=== PATIENT | male | born 1970 | race Caucasian/White ===

== ENCOUNTER 2022-01-29 09:55 | Outpatient (CLI) | payer OTHER, SELFPAY ==
--- NOTE | 2022-01-29 11:00 | NEURO_ITS ---
Impression: # Complains of left upper extremity pain. # Left ulnar neuropathy across the elbow. # No Carpal Tunnel Syndrome. # Abnormal needle/EMG exam of left 1st DI and ADM. Nerve Conduction Studies Anti Sensory Summary Table Stim Site NR Peak (ms) P-T Amp (?V) Site1 Site2 Delta-P (ms) Dist (cm) Jermain (m/s) Left Median Anti Sensory (2-3nd Digit) Wrist 3.3 45.6 Wrist 2-3nd Digit 3.3 14.0 42 Wrist 3.2 45.0 Wrist 2-3nd Digit 3.3 14.0 42 Right Median Anti Sensory (2-3nd Digit) Wrist 3.3 50.9 Wrist 2-3nd Digit 3.3 14.0 42 Wrist 3.3 24.9 Wrist 2-3nd Digit 3.3 14.0 42 Left Radial Anti Sensory (Base 1st Digit) Wrist 2.0 15.5 Wrist Base 1st Digit 2.0 0.0 Right Radial Anti Sensory (Base 1st Digit) Wrist 2.3 14.3 Wrist Base 1st Digit 2.3 0.0 Left Ulnar Anti Sensory (5th Digit) Right Ulnar Anti Sensory (5th Digit) Wrist 2.8 38.0 Wrist 5th Digit 2.8 14.0 50 Motor Summary Table Stim Site NR Onset (ms) O-P Amp (mV) Site1 Site2 Delta-0 (ms) Dist (cm) Jermain (m/s) Left Median Motor (Abd Poll Brev) Wrist 3.4 3.1 Elbow Wrist 5.3 31.0 58 Elbow 8.7 3.4 Right Median Motor (Abd Poll Brev) Wrist 3.4 2.4 Elbow Wrist 5.7 30.0 53 Elbow 9.1 1.9 Left Ulnar Motor (Abd Dig Minimi) Wrist 2.7 4.1 A Elbow Wrist 6.5 30.0 46 A Elbow 9.2 2.6 B Elbow Wrist 4.8 25.0 52 B Elbow 7.5 3.5 Right Ulnar Motor (Abd Dig Minimi) Wrist 2.3 4.6 A Elbow Wrist 6.0 33.0 55 A Elbow 8.3 2.9 F Wave Studies NR F-Lat (ms) L-R F-Lat (ms) Left Median (Mrkrs) (Abd Poll Brev) 29.63 0.25 Right Median (Mrkrs) (Abd Poll Brev) 29.38 0.25 Left Ulnar (Mrkrs) (Abd Dig Min) 30.33 0.41 Right Ulnar (Mrkrs) (Abd Dig Min) 29.92 0.41 EMG Side Muscle Nerve Root Ins Act Fibs Amp Dur Recrt Comment Right 1stDorInt Ulnar C8-T1 Nml Nml Nml >12ms Reduced Right Ext Indicis Radial (Post Int) C7-8 Nml Nml Nml Nml Nml Right Ext Digitorum Radial (Post Int) C7-8 Nml Nml Nml Nml Nml Right BrachioRad Radial C5-6 Nml Nml Nml Nml Nml Right PronatorTeres Median C6-7 Nml Nml Nml Nml Nml Right Abd Poll Brev Median C8-T1 Nml Nml Nml Nml Nml Left 1stDorInt Ulnar C8-T1 Nml Nml Nml >12ms Reduced Left Ext Indicis Radial (Post Int) C7-8 Nml Nml Nml Nml Nml Left Ext Digitorum Radial (Post Int) C7-8 Nml Nml Nml Nml Nml Left BrachioRad Radial C5-6 Nml Nml Nml Nml Nml Left PronatorTeres Median C6-7 Nml Nml Nml Nml Nml Left Abd Poll Brev Median C8-T1 Nml Nml Nml Nml Nml Right ABD Dig Min Ulnar C8-T1 Nml Nml Nml >12ms Reduced Left ABD Dig Min Ulnar C8-T1 Nml Nml Nml >12ms Reduced MTDD
== END 2022-01-29 09:56 | disposition home or self-care (01) ==
PROVIDERS: PCP Family Medicine; Visit Provider Family Medicine
DX: G56.22 Lesion of ulnar nerve, left upper limb (principal); R20.2 Paresthesia of skin
CPT/HCPCS: 95886; 95911

== ENCOUNTER 2024-01-14 08:54 | Outpatient (CLI) | payer OTHER, SELFPAY ==
--- NOTE | ~2024-01-14 | NM_ITS ---
EXAMINATION: NM stress w perf spect multi DATE: 01/14/2024 11:25 INDICATION: Other forms a dyspnea. TECHNIQUE: Rest images were obtained following intravenous administration of 9.67 mCi Tc99m tetrofosm in (Myoview). The patient performed an exercise activity. At peak exercise, 30.0588 mCi Tc99m tetrofo smin (Myoview) was administered intravenously, and supine and prone stress images were obtained. Data was reconstructed into short axis and horizontal and vertical long axis SPECT images. Gated SPECT im ages were also obtained. COMPARISON: Myocardial perfusion imaging 11/04/2017 FINDINGS: There is no definite reversible or fixed perfusion abnormality to suggest ischemia or infar ction. There is no segmental wall motion abnormality. Left ventricular ejection fraction measures 6 1%. IMPRESSION: 1. No definite ischemia or infarct. 2. Normal left ventricular ejection fraction measuring 61%. Reviewed, dictated and finalized at location [facility].
--- NOTE | ~2024-01-14 | XR_ITS ---
Clinical Indication: Dyspnea PA and lateral views of the chest: Comparison: 09/10/2013 Findings: The lungs are clear, without evidence of focal consolidation or pleural effusion. Cardiome diastinal silhouette is within normal limits. Bones and soft tissues are unremarkable. Impression: Normal chest. Reviewed, dictated and finalized at [facility]. Impression: Normal chest.
--- NOTE | 2024-01-14 09:34 | EST_ITS ---
Patient Info Name: Luis Mckeon Age: 53 years : 1970 Gender: Male Ht: 74 in Wt: 315 lbs BSA: 2.79 m2 HR: 54 bpm BP: 153 / 105 mmHg Heart Rhythm: Sinus Rhythm Exam Date: 01/14/2024 10:18 AM Exam Location: Echo Lab Patient Status: Outpatient Admit Date: 01/14/2024 Staff Ordering Physician: Heather Hinds PA-C Attending Provider: Heather Hinds PA-C Exercise Technologist: Radha Sewell CT Exercise Physician: Neeraj Servin DO Exam Type: CA stress test treadmill w NM Study Info Indications R06.09 - Other forms of dyspnea A nuclear stress test was performed. Summary 1. 1. Negative Romeo exercise stress test for ischemic ST changes by ECG criteria. 2. 2. Reduced functional capacity, achieving 7 METs of workload. 3. 3. Baseline hypertension. 4. 4. Appropriate HR response to exercise. 5. 5. Appropriate HR recovery at 1 minute post exercise. 6. 6. Nuclear scan to follow and will be reported separately. Please correlate with it. 7. 7. Patient informed of the above results. Protocol: Romeo Stress ECG Details Stage: REST Duration (min): 2 min : 15 sec Speed (mph): 0.0 Grade (%): 0 HR (bpm): 88 SBP (mmHg): 153 DBP (mmHg): 105 METS: --- Stage: REST Duration (min): 8 min : 56 sec Speed (mph): 0.0 Grade (%): 0 HR (bpm): 92 SBP (mmHg): 153 DBP (mmHg): 105 METS: --- Stage: STAGE 1 Duration (min): 1 min : 0 sec Speed (mph): 1.7 Grade (%): 10 HR (bpm): 118 SBP (mmHg): 153 DBP (mmHg): 105 METS: --- Stage: STAGE 1 Duration (min): 2 min : 0 sec Speed (mph): 1.7 Grade (%): 10 HR (bpm): 126 SBP (mmHg): 153 DBP (mmHg): 105 METS: --- Stage: STAGE 1 Duration (min): 3 min : 0 sec Speed (mph): 1.7 Grade (%): 10 HR (bpm): 129 SBP (mmHg): 151 DBP (mmHg): 92 METS: --- Stage: STAGE 2 Duration (min): 1 min : 0 sec Speed (mph): 2.5 Grade (%): 12 HR (bpm): 138 SBP (mmHg): 151 DBP (mmHg): 92 METS: --- Stage: STAGE 2 Duration (min): 2 min : 0 sec Speed (mph): 2.5 Grade (%): 12 HR (bpm): 143 SBP (mmHg): 151 DBP (mmHg): 92 METS: --- Stage: STAGE 2 Duration (min): 2 min : 0 sec Speed (mph): 2.5 Grade (%): 12 HR (bpm): 143 SBP (mmHg): 151 DBP (mmHg): 92 METS: --- Stage: RECOVERY Duration (min): 0 min : 59 sec Speed (mph): 0.0 Grade (%): 0 HR (bpm): 120 SBP (mmHg): 151 DBP (mmHg): 92 METS: --- Stage: RECOVERY Duration (min): 1 min : 59 sec Speed (mph): 0.0 Grade (%): 0 HR (bpm): 96 SBP (mmHg): 190 DBP (mmHg): 93 METS: --- Stage: RECOVERY Duration (min): 2 min : 59 sec Speed (mph): 0.0 Grade (%): 0 HR (bpm): 94 SBP (mmHg): 179 DBP (mmHg): 98 METS: --- Stage: RECOVERY Duration (min): 3 min : 21 sec Speed (mph): 0.0 Grade (%): 0 HR (bpm): 94 SBP (mmHg): 179 DBP (mmHg): 98 METS: --- Rest HR: 92 bpm Peak HR: 144 bpm Rest Sys BP: 153 mmHg Peak Sys BP: 190 mmHg Max Pred
== END 2024-01-14 08:55 | disposition home or self-care (01) ==
PROVIDERS: PCP Family Medicine; Visit Provider Physician Assistant Medical
DX: R06.09 Other forms of dyspnea (principal); I10 Essential (primary) hypertension
CPT/HCPCS: 71046; 78452; 93017; A9502